=== PATIENT | female | born 1985 | race Caucasian/White ===

== ENCOUNTER 2018-10-22 08:45 | Emergency (ER) | payer OTHER, MEDICAID ==
[2018-10-22] MEDS ORDERED: Lidocaine 1% 50 ML MDV INJECT ONE (09:14)
--- NOTE | 2018-10-22 09:29 | EDM.PDOC ---
ED HPI GENERAL MEDICAL PROBLEM - General Chief Complaint: Laceration Stated Complaint: LT POINTER FINGER LAC Time Seen by Provider: 10/22/18 09:05 Source of Information: Reports: Patient, RN Notes Reviewed - History of Present Illness INITIAL COMMENTS - FREE TEXT/NARRATIVE: 32-year-old female who suffered laceration injury left index finger. She was cutting a plastic tie the knife slipped and she suffered laceration dorsal aspect left index finger just proximal to the PIP joint. No numbness or tingling. She feels a lot of pain with flexion. She is able to extend her finger. Left Finger-Index Pain Score (Numeric/FACES): 8 - Related Data Allergies Allergy/AdvReac Type Severity Reaction Status Date / Time No Known Allergies Allergy Verified 10/22/18 08:53 Home Meds: Home Meds Escitalopram Oxalate [Lexapro] 20 mg PO DAILY 10/22/18 [History] Past Medical History FLEXIBLE NANNY History: Reports: - Past Surgical History HEENT Surgical History: Reports: Adenoidectomy, Tonsillectomy Neurological Surgical History: Reports: Scoliosis Social & Family History - Tobacco Use Smoking Status *Q: Former Smoker Used Tobacco, but Quit: Yes Month/Year Tobacco Last Used: July 2018 - Caffeine Use Caffeine Use: Reports: Coffee - Recreational Drug Use Recreational Drug Use: No ED ROS GENERAL - Review of Systems Review Of Systems: See Below HEENT: Reports: No Symptoms GI/Abdominal: Denies: Nausea, Vomiting Musculoskeletal: Reports: Other (Laceration injury left index finger) Neurological: Denies: Numbness, Tingling, Weakness ED EXAM, SKIN/RASH Exam: See Below General Appearance: Alert, No Apparent Distress Head: Atraumatic Respiratory/Chest: No Respiratory Distress Extremities: Other (1.5 cm long laceration injury dorsal aspect left index finger just proximal to the PIP joint, moderately deep, gaping, no active bleeding at this time) ED SKIN PROCEDURES - Laceration/Wound Repair Left Dorsal Digit - 2nd (Index) Lac/Wound length In cm: 1.5 Appearance: Linear, Clean Local Anesthesia - Lidocaine (Xylocaine): 1% Plain Skin Prep: Saline Suture Size: 3-0 # of Sutures: 5 Suture Type: Nylon Course - Vital Signs Last Recorded V/S: Last Vital Signs Temp 98.4 F 10/22/18 08:54 Pulse 102 H 10/22/18 08:54 Resp 13 10/22/18 08:54 BP 151/92 H 10/22/18 08:54 Pulse Ox 100 10/22/18 08:54 - Orders/Labs/Meds Meds: Medications Discontinued Medications Generic Name Dose Route Start Last Admin Trade Name Claudia PRN Reason Stop Dose Admin Lidocaine HCl 50 ml 10/22/18 09:14 Xylocaine 1% INJECT 10/22/18 09:15 ONETIME ONE Departure - Departure Time of Disposition: 09:35 Disposition: Home, Self-Care 01 Clinical Impression: Finger laceration Qualifiers: Encounter type: initial encounter Finger: index finger Damage to nail status: without damage Foreign body presence: without foreign body Laterality: left Qualified Code(s): S61.211A - Laceration without foreign body of left index finger without damage to nail, initial encounter - Discharge Information Referrals: Susanne Hearn MD [Primary Care Provider] - Additional Instructions: Laceration care instructions, stitches should be removed in about 10-12 days, call [phone] if you decide to have those removed at our [facility] medical [facility]. Have rechecked any sign of infection.
== END 2018-10-22 09:38 | disposition home or self-care (01) ==
LOC: JD.ED 08:45
DX: S61.211A Laceration without foreign body of left index finger without damage to nail, initial encounter (principal); Z87.891 Personal history of nicotine dependence; Z79.899 Other long term (current) drug therapy; W26.0XXA Contact with knife, initial encounter
CPT/HCPCS: 12001; 99282; 99283-25

== ENCOUNTER 2019-09-30 07:30 | Emergency (ER) | payer MEDICAID, OTHER ==
[2019-09-30] MEDS ORDERED: Acetaminophen 325 MG Tab PO ONE (08:02)
[2019-09-30] MEDS ORDERED: Ondansetron 4 MG Tab.DIS PO ONE (08:02)
--- NOTE | 2019-09-30 08:35 | EDM.PDOC ---
ED HPI GENERAL MEDICAL PROBLEM - General Chief Complaint: Genitourinary Problem Stated Complaint: BLOOD IN URINE/FLANK PAIN Time Seen by Provider: 09/30/19 07:54 Source of Information: Reports: Patient, RN Notes Reviewed - History of Present Illness INITIAL COMMENTS - FREE TEXT/NARRATIVE: 33-year-old female started noticing dark more brownish color to her urine 2 or 3 days ago. In having left back discomfort yesterday that worsened during the night and continues this morning. The pain at times does radiate to the left flank and to the left lower abdomen. She has had some mild nausea but no vomiting. She also did have some mild hematuria last evening that cleared after she drank a large amount of water. She's had no fever chills. No vomiting. No voiding urgency dysuria or frequency. Left Flank Pain Score (Numeric/FACES): 4 - Related Data Allergies Allergy/AdvReac Type Severity Reaction Status Date / Time No Known Allergies Allergy Verified 09/30/19 07:44 Home Meds: Home Meds Acetaminophen/HYDROcodone [[place] 325-5 MG] 1 tab PO Q6H PRN #14 tablet 09/30/19 [Rx] Ascorbic Acid [Vitamin C] 1,000 mg PO DAILY 09/30/19 [History] Calcium Carbonate [Calcium] 1 tab PO DAILY 09/30/19 [History] Iron 1 tab PO DAILY 09/30/19 [History] Multivitamin [Multivitamins] 1 tab PO DAILY 09/30/19 [History] Sertraline [Zoloft] 25 mg PO DAILY 09/30/19 [History] Past Medical History [employer] History: Reports: - Past Surgical History HEENT Surgical History: Reports: Adenoidectomy, Tonsillectomy GI Surgical History: Reports: Bariatric Procedure Neurological Surgical History: Reports: Scoliosis Social & Family History - Tobacco Use Smoking Status *Q: Current Every Day Smoker Years of Tobacco use: 1 Packs/Tins Daily: 16 - Caffeine Use Caffeine Use: Reports: Coffee - Recreational Drug Use Recreational Drug Use: No ED ROS GENERAL - Review of Systems Review Of Systems: See Below Constitutional: Denies: Fever, Chills, Diaphoresis HEENT: Reports: No Symptoms Respiratory: Denies: Shortness of Breath Cardiovascular: Denies: Chest Pain GI/Abdominal: Reports: Abdominal Pain (Mild left lower abdominal discomfort), Nausea (Mild occasional). Denies: Diarrhea, Vomiting : Reports: Flank Pain. Denies: Dysuria, Frequency, Urgency Musculoskeletal: Reports: Back Pain Skin: Reports: No Symptoms (Left-sided) Neurological: Reports: No Symptoms ED EXAM, RENAL/ - Physical Exam Exam: See Below General Appearance: Alert, Mild Distress Eye Exam: Bilateral Eye: PERRL Throat/Mouth: Normal Inspection Head: Atraumatic. No: Facial Swelling Neck: Supple Respiratory/Chest: No Respiratory Distress, Lungs Clear, Normal Breath Sounds Cardiovascular: Regular Rate, Rhythm GI/Abdominal: Soft, Non-Tender Back Exam: No: CVA Tenderness (L), CVA Tenderness (R) Extremities: Normal Inspection. No: Pedal Edema Neurological: Alert, Oriented, No Motor/Sensory Deficits Skin Exam: Warm, Dry, Normal Color, No Rash Course - Vital Signs Last Recorded V/S: Last Vital Signs Temp 98.1 F 09/30/19 07:40 Pulse 84 09/30/19 07:40 Resp 16 09/30/19 07:40 BP 137/83 09/30/19 07:40 Pulse Ox 99 09/30/19 07:40 - Orders/Labs/Meds Labs: Laboratory Tests 09/30/19 09/30/19 Range/Units 07:40 07:40 Urine Color Nanette H (Yellow) Urine Appearance Cloudy H (Clear) Urine pH 6.0 (5.0-8.0) Ur Specific [place] > or = 1.030 (1.005-1.030) Urine Protein 3+ H (Negative) Urine Glucose (UA) Negative (Negative) Urine Ketones Negative (Negative) Urine Occult Blood 3+ H (Negative) Urine Nitrite Negative (Negative) Urine Bilirubin 1+ H (Negative) Urine Urobilinogen 0.2 (0.2-1.0) Ur Leukocyte Esterase Negative (Negative) Urine RBC Too numerous to cnt H (0-5) /hpf Urine WBC 0-5 (0-5) /hpf Ur Epithelial Cells 10-20 H (0-5) /hpf Urine Bacteria Few (FEW) /hpf Urine Mucus Few (FEW) /hpf Urine HCG, Qual Negative (NEGATIVE) Meds: Medications Discontinued Medications Generic Name Dose Route Start Last Admin Trade Name Freq PRN Reason Stop Dose Admin Acetaminophen 975 mg 09/30/19 08:02 09/30/19 08:08 Tylenol PO 09/30/19 08:03 975 mg NOW ONE Administration Ondansetron HCl 4 mg 09/30/19 08:02 09/30/19 08:08 Zofran Odt PO 09/30/19 08:03 4 mg ONETIME ONE Administration - Re-Assessments/Exams Free Text/Narrative Re-Assessment/Exam: 09/30/19 10:05. UA did not show UTI so CT was ordered to check for stone. This does show a 4 mm stone proximal left ureter. See radiology report for details. He was given Tylenol for pain and that did give her adequate relief for now. Discharge instructions as documented. . Departure - Departure Time of Disposition: 10:00 Disposition: Home, Self-Care 01 Condition: Fair Clinical Impression: Kidney stone on left side, Ureter colic - Discharge Information Prescriptions: Acetaminophen/HYDROcodone [[place] 325-5 MG] 1 tab PO Q6H PRN #14 tablet PRN Reason: Pain Referrals: Susanne Hearn MD [Primary Care Provider] - Forms: ED Department Discharge Additional Instructions: Drink plenty of water to maintain hydration, strain urine to watch for stone, plan to follow-up with your clinic provider early next week or next available appointment for recheck. If you do not pass the stone within 3-5 days Urology follow-up may be necessary. Tylenol every 6-8 hours for mild to moderate discomfort or hydrocodone if needed for more severe pain. Prescription has been sent electronically to clinic pharmacy. Do not drive or work when taking hydrocodone, do not take Tylenol and hydrocodone at the same time. ED as needed if symptoms worsening in any way. Sepsis Event Note - Evaluation Sepsis Screening Result: No Definite Risk - Focused Exam Vital Signs: Vital Signs Temp Pulse Resp BP Pulse Ox 09/30/19 07:40 98.1 F 84 16 137/83 99 Date Exam was Performed: 09/30/19 Time Exam was Performed: 10:04
--- NOTE | 2019-09-30 09:40 | CT ---
CT abdomen and pelvis Technique: Multiple axial sections were obtained from above the kidneys inferiorly through the pubic symphysis. Intravenous and oral contrast was not utilized. Study has been performed as a ureteral stone protocol. Findings: 4 mm obstructing stone is noted within the proximal left ureter at the UPJ. This stone causes proximal hydronephrosis of the collecting system. No other abnormal calcifications are seen along the course of the ureters. No abnormal calcifications are seen within the kidneys. Other findings: Visualized lung bases show nothing acute. Visualized liver and spleen shows no discrete abnormality. Gallbladder that is seen shows no calcified gallstones. Fat-containing right adrenal nodule is partially seen measuring 2.0 cm which is believed to be benign. No retroperitoneal adenopathy or mesenteric abnormalities are seen. No pelvic mass or adenopathy is seen. No free fluid or inflammatory change is identified. Appendix is felt to be seen and is normal in size. Previous surgery is noted within the thoracolumbar junction. Scattered degenerative change is noted within the spine with scoliosis. Previous stomach surgery. Impression: 1. 4 mm obstructing stone located proximally at the UPJ. This stone causes proximal hydronephrosis. 2. Other findings which are believed to be incidental and nonacute as noted above. Diagnostic code #3 This report was dictated in [place] Standard Time
== END 2019-09-30 10:20 | disposition home or self-care (01) ==
LOC: JD.ED 07:30
DX: N13.2 Hydronephrosis with renal and ureteral calculous obstruction (principal); F17.210 Nicotine dependence, cigarettes, uncomplicated; Z79.899 Other long term (current) drug therapy
CPT/HCPCS: 74176; 81001; 81025; 99284; A9270; 99283